=== PATIENT | male | born 1950 | race Caucasian/White ===

== ENCOUNTER → 2018-03-05 11:06 | Emergency (ER) | payer OTHER ==
[~2018-03-05 11:06] MED LIST: Al Hydrox/Mg Hydrox/Simet LIQ* 30 ML UDC PO ONE; Famotidine IV* 10 MG/ML 2 ML (20 mg) IV SLOW PU ONE; Lidocaine 2% VISCOUS* 15 ML UDC PO ONE; Morphine INJ* 2 MG/ML 1 ML SYRINGE (TWO MG - NEW SYRINGE VERSION) IV ONE; NS 0.9% 1000 ML* 1,000 ML IV ONE; Ondansetron INJ* 2 MG/ML VIAL IV ONE; oxyCODONE/Acetamin 5/325 MG* TAB PO ONE
--- NOTE | 2018-03-05 12:29 | ED ---
Abdominal Pain/Male - HPI Summary HPI Summary: Pt presents w/ Rt flank pain x 1 day. Started last night while in his cell at [facility]. Denies trauma. 04/28. Constant. No radiation. Pain is so bad at times he vomited this morning multiple times - no anti-emetic medications tried yet. Received toradol at [facility] (note: h/o gastric ulcer and current GERD - takes PPI before bed each night) - made pain worse. He is unclear about urinary sx (ie. not sure if he's urinating more or less, has urgency or frequency, etc) however he reports "they found blood in the urine at the correction " (+ blood on U/A). He takes flomax daily. H/o kidney stone and this feels the same. NOTE: nursing note from [facility] indicates pt has cardiac cath scheduled for as he "failed his stress test". He denies CP, SOB, jaw/arm pain at present. He takes medication for HTN, hyperlipidemia. Vasotec, lipitor, ASA. He also has DM and takes metformin - well controlled per pt. Additionally he has Parkinsons and takes sinemet. - History of Current Complaint Chief Complaint: EDFlankPain Stated Complaint: RT FLANK PAIN Time Seen by Provider: 03/05/18 11:10 Hx Obtained From: Patient Pain Intensity: 4 - Allergies/Home Medications Allergies/Adverse Reactions: Allergies Allergy/AdvReac Type Severity Reaction Status Date / Time No Known Allergies Allergy Verified 03/05/18 11:12 Home Medications: Home Medications Aspirin EC TAB* [Ecotrin EC Low Dose 81 MG*] 81 mg PO DAILY 03/05/18 [History Confirmed 03/05/18] Atorvastatin* [Lipitor*] 10 mg PO DAILY 03/05/18 [History Confirmed 03/05/18] Carbidopa/Levodop 25/100 MG(*) [Sinemet 25/100 TAB(*)] 1 tab PO QID 03/05/18 [ History Confirmed 03/05/18] Enalapril TAB* [Vasotec TAB*] 20 mg PO DAILY 03/05/18 [History Confirmed ] Omeprazole CAP* [Prilosec CAP* 20 MG] 20 mg PO BID 03/05/18 [History Confirmed 03/05/18] Tamsulosin CAP* [Flomax CAP*] 0.4 mg PO BEDTIME 03/05/18 [History Confirmed ] metFORMIN* [Glucophage 500 MG TAB *] 500 mg PO BID 03/05/18 [History Confirmed 03/05/18] PMH/Surg Hx/FS Hx/Imm Hx Previously Healthy: Yes Endocrine/Hematology History: Reports: Hx Diabetes - controlled w/ meds Denies: Hx Anticoagulant Therapy Cardiovascular History: Reports: Hx Hypercholesterolemia - on med, Hx Hypertension - on meds, Other Cardiovascular Problems/Disorders - recently failed stress test - due for cath on 03/09/2018 GI History: Reports: Hx Gastroesophageal Reflux Disease - on med History: Reports: Hx Kidney Stones Sensory History: Reports: Hx Contacts or Glasses Opthamlomology History: Reports: Hx Contacts or Glasses Neurological History: Reports: Other Neuro Impairments/Disorders - parkinson's - on med Infectious Disease History: No Infectious Disease History: Denies: Traveled Outside the [place] in Last 30 Days - Family History Known Family History: Positive: Other - 2 males in family w/ kidney stones - Social History Occupation: Unemployed Lives: Dormitory/Roommates - [facility] Long-Term Alcohol Use: None - h/o ETOH - not currently Hx Substance Use: No Substance Use Type: Reports: None Hx Tobacco Use: Yes - not currently Smoking Status (MU): Former Smoker Review of Systems Constitutional: Negative Negative: Fever, Chills, Fatigue Cardiovascular: Negative Negative: Palpitations, Chest Pain Respiratory: Negative Negative: Shortness Of Breath, Cough Positive: Vomiting, Nausea. Negative: Diarrhea Positive: see HPI, flank pain - Rt Neurological: Negative Negative: Headache All Other Systems Reviewed And Are Negative: Yes Physical Exam Triage Information Reviewed: Yes Vital Signs On Initial Exam: Initial Vitals Temp Pulse Resp BP Pulse Ox 97.9 F 82 16 134/82 98 03/05/18 11:08 03/05/18 11:08 03/05/18 11:08 03/05/18 11:08 03/05/18 11:08 Vital Signs Reviewed: Yes Appearance: Positive: Well-Appearing, Well-Nourished, Pain Distress Skin: Positive: Warm, Skin Color Reflects Adequate Perfusion, Dry Head/Face: Positive: Normal Head/Face Inspection Eyes: Positive: EOMI ENT: Positive: Hearing grossly normal, Pharynx normal - mucosa moist Respiratory/Lung Sounds: Positive: Breath Sounds Present Cardiovascular: Positive: Normal, RRR. Negative: Murmur, Rub Abdomen Description: Positive: Soft, CVA Tenderness (R) - mild, Other: - RLQ pain (mild) - no rebounding; no bruit appreciated upon auscultation. Negative: CVA Tenderness (L), Distended, Guarding Male Genital Exam: Positive: Other - deferred as pt denies sx of penile or testicular pain Musculoskeletal: Positive: Normal, Strength/ROM Intact Neurological: Positive: Normal, Sensory/Motor Intact, Alert, Oriented to Person Place, Time, CN Intact II-III Psychiatric: Positive: Normal Diagnostics - Vital Signs Vital Signs Temp Pulse Resp BP Pulse Ox 03/05/18 11:08 97.9 F 82 16 134/82 98 - Laboratory Result Diagrams: 03/05/18 12:14 03/05/18 12:14 Lab Statement: Any lab studies that have been ordered have been reviewed, and results considered in the medical decision making process. Re-Evaluation - Re-Evaluation First Eval Change: Improved - nausea resolved - Rt flank pain improved however epigastric pain is now present. He reports he last ate at breakfast but vomited this up. Has GERD w/ h/o ulcer. Also received toradol earlier today -this may be exacerbating sx of epigastric pain. Will try famotidine and GI cocktail along w / a snack and see if pain improves. If not, will start cardiac w/u given his report of pending cardiac cath this week. Denies SOB, jaw/arm pain. Abdominal Pain Fem Course/Dx - Course Course Of Treatment: Patient presents with right-sided flank pain this started this morning. He has a history of kidney stones and so kidney stone workup was initiated as he reports this feels the same. CT reveals 3 mm right UVJ calculus with a resultant mild hydronephrosis and hydroureter. There are also additional tiny nonobstructive calculi bilaterally. Patient's flank pain reduced with morphine and he has not been able to provide urine since he's been here (note: Patient reports he is shy to urinate from other people and has 2 officers in the room with him). His nausea has resolved with Zofran. His creatinine is 1.57 which is elevated for him. Discussed this may be followed through [facility] medical staff in 2-3 days. Patient will also strain every urine until he catches his stones. He arty takes Flomax daily so will not need to add this. We'll discharge him with pain medication and advised if his symptoms worsen, return to the emergency department. All conversations with patient to placed her educational interpreter and patient voices understanding. Additionally, patient reports towards the end of the visit that he is having epigastric discomfort. Given his Toradol earlier today and history of gastric ulcer, will first try GI cocktail and famotidine see if this alleviates his discomfort as he was vomiting earlier today and has not eaten since. If no relief in pain, we'll initiate cardiac workup pending cardiac catheter. - Diagnoses Provider Diagnoses: Urinary tract stones, GERD (gastroesophageal reflux disease) Discharge - Sign-Out/Discharge Documenting (check all that apply): Patient Departure - Discharge Plan Condition: Stable Disposition: HOME Prescriptions: oxyCODONE/Acetamin 5/325 MG* [Percocet 5/325 TAB*] 1 tab PO Q6H PRN #20 tab MDD 4 PRN Reason: Pain Patient Education Materials: Kidney Stones (ED), How to Strain Your Urine (ED) Referrals: [facility], [[email or web address], APPLICATION, OTHER] - Ifeanyi Manuel MD [Medical Doctor] - Additional Instructions: Your workup today is positive for a right sided kidney stone that has almost pass completely through your urinary tract. This should continue to pass all the way over the next couple of days. You been sent home with a strainer - please use this every time you urinate in an effort to catch your stone. Once you have caught your stone, take it to medical staff for testing through urology. Call urology for to make a follow-up appointment. Additionally, you have been given pain medication for a short course to help you pass the stone comfortably. *If your symptoms become worse, seek medical attention immediately. Note: Your kidney function is worse today than usual. It is important that you have repeat BUN and creatinine labs in 2-3 days to see if this is improving or worsening. *If worse or you are unable to urinate, seek immediate medical attention. You were also found to have exacerbation of your GERD aka "heartburn". It is important that you avoid NSAID's (do not take ibuprofen, aleve, toradol, etc) to prevent return of pain and/or ulcer which you had in the past. *If you develop bloody vomiting and/or black or bloody stools, return to the emergency department. - Billing Disposition and Condition Condition: STABLE Disposition: Home
[2018-03-05 12:34] LABS: ABS Basophils 0.1 10^3/ul (0-0.2); ABS Eosinophils 0 10^3/ul (0-0.6); ABS Monocytes 0.7 10^3/ul (0-0.8); ABS Neutrophils 7.1 10^3/ul (1.5-7.7); ABS Nucleated RBC 0 10^3/ul; Eosinophil % 0.2 % (0-6); Hematocrit 43 % (42-52); Hemoglobin 14.2 g/dl (14.0-18.0); Lymphocyte % 10.8 % (25-47); Mean Corpuscular HGB Conc 33 g/dl (31-36); Mean Corpuscular Hemoglobin 27 pg (27-31); Mean Corpuscular Volume 83 fL (80-94); Mean Platelet Volume 9.2 um3 (7.4-10.4); Nucleated Red Blood Cells % 0; Platelet Count 181 10^3/ul (150-450); Red Blood Count 5.19 10^6/ul (4.00-5.40); Red Cell Distribution Width 14 % (10.5-15); White Blood Count 8.9 10^3/ul (3.5-10.8)
[2018-03-05 12:40] LABS: EGFR Non-African American 44.6 (>60)
--- NOTE | 2018-03-05 13:08 | RAD ---
INDICATION: Right flank pain none COMPARISON: None TECHNIQUE: Noncontrast axial source images were acquired from the level hemidiaphragms to the symphysis pubis as part of CT imaging for renal stone. Lung bases: There is a 4 mm rounded, noncalcified nodule in the right lung base. This is a low suspicion finding and may represent a granuloma. However, suggest noncontrast CT scanning of the chest in 6 months to reassess. There is an additional calcified granuloma in the right lung base measuring 2 to 3 mm. Liver: The liver is normal in size. Noncontrast imaging shows no evidence of a hepatic mass or ductal dilatation. Gallbladder: The gallbladder is not identified. Correlate with clinical history of cholecystectomy. Spleen: The spleen is normal in size. The noncontrast CT appearance is normal. Pancreas: Noncontrast imaging shows no pancreatic mass or ductal dilitation. Adrenal glands: No masses are identified. Kidneys/Bladder: There is a 2 mm nonobstructive calculus in the lower pole of the left kidney. The left ureter appears normal. There is right sided renal obstruction produced by 3 mm calculus at the UVJ. There is mild right-sided hydronephrosis and hydroureter. There is mild perinephric stranding. There are at least for additional, tiny, nonobstructive calculi which measure up to 3 mm. The bladder otherwise appears normal. Adenopathy: There is no evidence of intraperitoneal or retroperitoneal adenopathy. Evaluation is limited without oral contrast. Fluid collections: There are no free or localized fluid collections. Vessels: The aorta and iliac vessels are normal in caliber. There are no significant atherosclerotic changes. The IVC appears normal Pelvic organs: The uterus and adnexa appear normal GI tract: Evaluation of the bowel is limited without oral contrast. The stomach, small bowel, and lower GI tract appear grossly normal. There are no obstructive findings. The appendix is visualized and appears normal. Soft tissues: No soft tissue abnormalities of the extraperitoneal abdomen or pelvis are identified. Osseous structures: There are no acute osseous findings. IMPRESSION: 3 MM RIGHT UVJ CALCULUS WITH RESULTANT MILD HYDRONEPHROSIS AND HYDROURETER. ADDITIONAL TINY, NONOBSTRUCTIVE CALCULI ARE NOTED BILATERALLY.
[2018-03-05 16:19] VITALS: BP 127/71
== END | disposition home or self-care (01) ==
LOC: ED 11:06
DX: N13.2 Hydronephrosis with renal and ureteral calculous obstruction (principal); K21.9 Gastro-esophageal reflux disease without esophagitis; I10 Essential (primary) hypertension; E78.5 Hyperlipidemia, unspecified; E11.9 Type 2 diabetes mellitus without complications; G20 Parkinson's disease; E78.00 Pure hypercholesterolemia, unspecified; Z87.442 Personal history of urinary calculi; Z87.891 Personal history of nicotine dependence; Z79.84 Long term (current) use of oral hypoglycemic drugs; Z79.82 Long term (current) use of aspirin; Z79.899 Other long term (current) drug therapy
CPT/HCPCS: 36415; 74176; 80053; 83605; 83690; 83735; 85025; 86140; 96374; 96375; 99284; A9270-GY; J2270; J2405